=== PATIENT | male | born 1990 | race African-American/Black ===

== ENCOUNTER 2017-07-14 08:22 | Emergency (ER) | payer SELFPAY ==
[~2017-07-14] VITALS: Ht 182.9 cm; Wt 105.0 kg
[2017-07-14 08:25] VITALS: Ht 182.9 cm; Wt 105.0 kg
[2017-07-14] MEDS ORDERED: NAPROSYN500 MG PO (08:50)
[2017-07-14] MEDS ORDERED: PENICILLIN V P500 MG PO ×2 (08:50→08:54)
[2017-07-14] MEDS ORDERED: ACETAMINOPHEN500 M1 PO (08:50)
[2017-07-14 09:27] VITALS: BP 143/88
== END 2017-07-14 09:29 | disposition home or self-care (01) ==
LOC: D.ER 08:22
DX: K02.9 Dental caries, unspecified (principal); K05.10 Chronic gingivitis, plaque induced; F17.200 Nicotine dependence, unspecified, uncomplicated